=== PATIENT | male | born 1985 | race Caucasian/White ===

== ENCOUNTER 2020-02-17 11:47 | Emergency (ER) | payer BC ==
[~2020-02-17] VITALS: Ht 180.3 cm; Wt 77.3 kg
[2020-02-17 15:02] VITALS: BP 96/55
== END 2020-02-17 15:52 | DRG 605 ==
LOC: ED 11:47
DX: S61.451A Open bite of right hand, initial encounter (principal); S60.572A Other superficial bite of hand of left hand, initial encounter; W54.0XXA Bitten by dog, initial encounter; Y93.89 Activity, other specified; Y92.009 Unspecified place in unspecified non-institutional (private) residence as the place of occurrence of the external cause; F17.290 Nicotine dependence, other tobacco product, uncomplicated; Z20.828 Contact with and (suspected) exposure to other viral communicable diseases

== ENCOUNTER 2021-09-13 21:15 | Emergency (ER) | payer BC ==
[~2021-09-13] VITALS: Ht 180.3 cm; Wt 80.0 kg
[2021-09-13] MEDS ORDERED: AMOXICILLIN500 MG PO (23:03)
[2021-09-13] MEDS ORDERED: NAPROXEN500 MG PO (23:03)
[2021-09-13 23:10] VITALS: BP 115/73
== END 2021-09-13 23:27 | disposition home or self-care (01) | DRG 125 ==
LOC: ED 21:15
PROC: 0HQ1XZZ Repair Face Skin, External Approach (ICD-10-PCS; principal; 2021-09-13)
DX: S01.112A Laceration without foreign body of left eyelid and periocular area, initial encounter (principal); Y04.2XXA Assault by strike against or bumped into by another person, initial encounter; Y92.832 Beach as the place of occurrence of the external cause

== ENCOUNTER 2022-01-16 22:26 | Emergency (ER) | payer BC ==
[~2022-01-16] VITALS: Ht 180.3 cm; Wt 77.0 kg
[~2022-01-16 22:26] MED LIST: AMOXICILLIN500 MG PO; NAPROXEN500 MG PO
[2022-01-16 23:05] VITALS: BP 111/76
== END 2022-01-16 23:13 | disposition home or self-care (01) | DRG 950 ==
LOC: ED 22:26
DX: S61.511D Laceration without foreign body of right wrist, subsequent encounter (principal); X58.XXXD Exposure to other specified factors, subsequent encounter

== ENCOUNTER 2023-01-17 20:28 | Emergency (ER) | payer BC ==
[~2023-01-17] VITALS: Ht 180.3 cm; Wt 86.1 kg
[2023-01-17 20:56] VITALS: BP 111/61
[2023-01-17 21:00] VITALS: BP 94/69
[2023-01-17 21:23] LABS: BASO% 0.2 % (0-3); EOS% 0.4 % (0-8); HEMATOCRIT 41.9 % (39.0-50.0); HEMOGLOBIN 13.7 g/dl (14.0-18.0); IMMATURE GRANULOCYTES 0.2 % (0.0-5.0); LYMPH% 7.4 % (15-41); MEAN CELL VOLUME 92.5 fL CALC (80.0-100.0); MEAN CORPUSCULAR HGB 30.2 pG CALC (26.0-32.0); MEAN CORPUSCULAR HGB CONC 32.7 g/dL CAL (32.0-36.0); MONO% 5.1 % (2-13); NEUT# 15.75 thou/uL (1.82-7.42); NEUT% 86.7 % (42-76); RED BLOOD COUNT 4.53 mill/uL (4.70-6.10); RED CELL DISTRI WIDTH 12.4 % (11.5-15.5)
[2023-01-17 21:43] LABS: ANION GAP 15 (6-22 (CALC)); BUN 24 mg/dL (9-20); BUN/CREATININE RATIO 23 (12-20 (CALC)); CARBON DIOXIDE 26 mmol/l (22-30); CHLORIDE 104 mmol/l (95-108); GFR FOR AFR.AMER. > 60 ML/MIN (>=60 (CALC)); GFR OTHER RACES > 60 ML/MIN (>=60 (CALC)); POTASSIUM 3.9 mmol/l (3.5-5.1); SODIUM 140 mmol/l (137-146)
[2023-01-17] MEDS ORDERED: VIBRAMYCIN100 M2 PO (22:28)
[2023-01-17 22:55] VITALS: BP 94/69
[2023-01-20] MEDS ORDERED: CLINDAMYCIN HC150 MG PO (19:38)
== END 2023-01-17 22:55 | disposition home or self-care (01) | DRG 603 ==
LOC: ED 20:28
PROVIDERS: Family Medicine
DX: L03.116 Cellulitis of left lower limb (principal)

== ENCOUNTER 2024-03-11 02:00 | Emergency (ER) | payer OTHER ==
[~2024-03-11] VITALS: Ht 177.8 cm; Wt 81.0 kg
[~2024-03-11 02:00] MED LIST changes: +CLINDAMYCIN HC150 MG PO; +VIBRAMYCIN100 M2 PO
[2024-03-11 02:20] VITALS: BP 127/69
[2024-03-11] MEDS ORDERED: LIDOCAINE VISCOUS 2% 15 ML UDC PO ONE (02:25)
[2024-03-11] MEDS ORDERED: DEXAMETHASONE 2 MG/TAB TAB PO ONE (02:25)
[2024-03-11] MEDS ORDERED: LIDOCAINE21 MT (04:06)
[2024-03-11 04:11] VITALS: BP 127/69
== END 2024-03-11 04:15 | disposition home or self-care (01) | DRG 316 ==
LOC: ED 02:00
DX: R09.A2 Foreign body sensation, throat (principal)